=== PATIENT | male | born 1980 | race Caucasian/White ===

== ENCOUNTER 2017-03-31 15:25 | Emergency (ER) | payer BC, OTHER ==
[~2017-03-31] VITALS: Ht 170.2 cm; Wt 66.0 kg
[2017-03-31 15:31] VITALS: TEMP 36.8; Ht 170.2 cm; Wt 66.0 kg
[2017-03-31] MEDS ORDERED: ONDANSETRON INJ 2 MG/ML 2 ML VIAL IV STA (16:00)
[2017-03-31] MEDS ORDERED: KETOROLAC TROMETHAMINE 30 MG/ML VIAL IV STA (16:00)
[2017-03-31] MEDS ORDERED: SODIUM CHLORIDE 0.9% 1000ML 1,000 ML IV STA (16:00)
[2017-03-31 16:26] LABS: BASO % 0.9 %; BASO ABS # 0.05 K/uL (0-0.2); COMPLETE YES; EOS % 3.1 %; IG% 0.2 %; LYMPH % 26.8 %; LYMPH ABS # 1.54 K/uL (1.2-3.4); MEAN CELL VOLUME 87.6 fL (80-100); MEAN CORPUSCULAR HEMOGLOBIN 30.8 pg (25-34); MEAN CORPUSCULAR HGB CONC 35.1 g/dl (32-36); MEAN PLATELET VOLUME 9.6 fL (7.4-10.4); PLATELET COUNT 211 K/uL (130-400); RED BLOOD COUNT 4.91 M/uL (4.7-6.1); WHITE BLOOD COUNT 5.75 K/uL (4.8-10.8)
[2017-03-31 16:35] LABS: MANUAL MICROSCOPIC REQUIRED? NO; REVIEW REQ? NO; URINE APPEARANCE CLEAR (CLEAR); URINE BILIRUBIN NEG (NEG); URINE COLOR YELLOW; URINE EPITHELIAL CELL AUTO 0-5 /lpf (0-5); URINE NITRITE NEG (NEG); UROBILINOGEN NEG (NEG); ZZUR CULT IF INDIC CLEAN CATCH NO
[2017-03-31 16:45] LABS: BUN/CREATININE RATIO 13.9 (10-20); CALCIUM 9.2 mg/dl (8.5-10.1); CREATININE 0.9 mg/dl (0.60-1.40); POTASSIUM 3.9 mmol/L (3.5-5.1)
--- NOTE | 2017-03-31 16:48 | DIAGNOSTIC IMAGING REPORT ---
ABDOMEN AND PELVIS CT WITHOUT CONTRAST CT DOSE: 519.46 mGy.cm HISTORY: flank pain rt side TECHNIQUE: Multiaxial CT images of the abdomen and pelvis were performed without the use of intravenous and oral contrast according to the standard department stone protocol. A dose lowering technique was utilized adhering to the principles of ALARA. However, the patient was given oral contrast at an outside facility. COMPARISON STUDY: None. FINDINGS: The lung bases are clear. No pneumoperitoneum. No pneumatosis. A 6 mm hypodense lesion within the left hepatic lobe. This is too small to characterize but favors a cyst. The unenhanced spleen is unremarkable. There is a 2 mm stone within the right kidney and a 1 mm stone within the left kidney. No ureteral stones or hydronephrosis. Mild bladder wall thickening. The unenhanced gallbladder, adrenal glands, and pancreas are within normal limits. No retroperitoneal lymphadenopathy. No bowel wall thickening or obstruction. The appendix is normal in caliber measuring 6 mm. There is gas and fluid within the appendix. No periappendiceal fat stranding to suggest acute appendicitis. IMPRESSION: 1. Bilateral nephrolithiasis. No ureteral stones. No hydronephrosis. 2. No bowel wall thickening or obstruction. 3. No evidence for acute appendicitis. Electronically signed by: Catarino Rawls M.D. 03/31/2017 4:47 PM Dictated Date/Time: 03/31/2017 4:39 PM
--- NOTE | 2017-03-31 17:54 | EMERGENCY ROOM VISIT NOTE ---
History Report prepared by Zeny: Chari Nuñez Under the Supervision of: Dr. Alejandro Sabillon D.O. First contact with patient: 15:40 Chief Complaint: FLANK PAIN Stated Complaint: RIGHT SIDED PAIN History of Present Illness The patient is a 37 year old male who presents to the Emergency Room with complaints of worsening right sided abdominal pain starting last night. When the pain started last night, it was not as severe and just an annoyance. This morning when he woke up the pain had become worse. He has pain with just lightly touching his right side. He had an appointment with his PCP who had ordered a CT scan later today, but he decided to come to the ED because the pain was very severe. He denies having any rashes. He has a history of diverticulitis. He notes that his current pain is in the same area as his previous diverticulitis. Source of History: patient Onset: last night Position: abdomen (right sided) Symptom Intensity: severe Quality: other (pain) Timing: worsening Associated Symptoms: No rash Review of Systems See HPI for pertinent positives & negatives. A total of 10 systems reviewed and were otherwise negative. Past Medical & Surgical Medical Problems: (1) Diverticulitis Family History No pertinent family history stated. Social History Smoking Status: Never Smoker Marital Status: Current/Historical Medications No Active Prescriptions or Reported Meds Allergies Coded Allergies: No Known Allergies (Unverified , 03/31/17) Physical Exam Vital Signs Date Time Temp Pulse Resp B/P (MAP) Pulse Ox O2 Delivery O2 Flow Rate FiO2 03/31/17 17:17 92 18 138/82 100 Room Air 03/31/17 15:31 36.8 113 20 142/94 99 Room Air Physical Exam CONSTITUTIONAL/VITAL SIGNS: Reviewed / noted above. GENERAL: Non-toxic in appearance. INTEGUMENTARY: Warm, dry, and [place]. HEAD: Normocephalic. EYES: without scleral icterus or trauma. ENT/OROPHARYNX: clear and moist. LYMPHADENOPATHY/NECK: Is supple without lymphadenopathy or meningismus. RESPIRATORY: Lungs clear and equal. CARDIOVASCULAR: Regular rate and rhythm. GI/ABDOMEN: Soft with tenderness to palpation of the right mid abdominal region. No organomegaly or pulsatile mass. No rebound or guarding. Normal bowel sounds. EXTREMITIES: Warm and well perfused. BACK: Right CVA tenderness. NEUROLOGICAL: Intact without focal deficits. PSYCHIATRIC: normal affect. MUSCULOSKELETAL: Normally developed with good muscle tone. Medical Decision & Procedures ER Provider Diagnostic Interpretation: Radiology results as stated below per my review and radiologist interpretation: ABDOMEN AND PELVIS CT WITHOUT CONTRAST CT DOSE: 519.46 mGy.cm HISTORY: flank pain rt side TECHNIQUE: Multiaxial CT images of the abdomen and pelvis were performed without the use of intravenous and oral contrast according to the standard department stone protocol. A dose lowering technique was utilized adhering to the principles of ALARA. However, the patient was given oral contrast at an outside facility. COMPARISON STUDY: None. FINDINGS: The lung bases are clear. No pneumoperitoneum. No pneumatosis. A 6 mm hypodense lesion within the left hepatic lobe. This is too small to characterize but favors a cyst. The unenhanced spleen is unremarkable. There is a 2 mm stone within the right kidney and a 1 mm stone within the left kidney. No ureteral stones or hydronephrosis. Mild bladder wall thickening. The unenhanced gallbladder, adrenal glands, and pancreas are within normal limits. No retroperitoneal lymphadenopathy. No bowel wall thickening or obstruction. The appendix is normal in caliber measuring 6 mm. There is gas and fluid within the appendix. No periappendiceal fat stranding to suggest acute appendicitis. IMPRESSION: 1. Bilateral nephrolithiasis. No ureteral stones. No hydronephrosis. 2. No bowel wall thickening or obstruction. 3. No evidence for acute appendicitis. Electronically signed by: Catarino Rawls M.D. 03/31/2017 4:47 PM Dictated Date/Time: 03/31/2017 4:39 PM Laboratory Results 03/31/17 16:16 Red Blood Count 4.91, Mean Corpuscular Volume 87.6, Mean Corpuscular Hemoglobin 30.8, Mean Corpuscular Hemoglobin Concent 35.1, Mean Platelet Volume 9.6, Neutrophils (%) (Auto) 62.0, Lymphocytes (%) (Auto) 26.8, Monocytes (%) (Auto) 7.0, Eosinophils (%) (Auto) 3.1, Basophils (%) (Auto) 0.9, Neutrophils # (Auto) 3.57, Lymphocytes # (Auto) 1.54, Monocytes # (Auto) 0.40, Eosinophils # (Auto) 0.18, Basophils # (Auto) 0.05 03/31/17 16:16 Test 03/31/17 16:16 03/31/17 16:22 White Blood Count 5.75 K/uL (4.8-10.8) Red Blood Count 4.91 M/uL (4.7-6.1) Hemoglobin 15.1 g/dL (14.0-18.0) Hematocrit 43.0 % (42-52) Mean Corpuscular Volume 87.6 fL (80-100) Mean Corpuscular Hemoglobin 30.8 pg (25-34) Mean Corpuscular Hemoglobin Concent 35.1 g/dl (32-36) Platelet Count 211 K/uL (130-400) Mean Platelet Volume 9.6 fL (7.4-10.4) Neutrophils (%) (Auto) 62.0 % Lymphocytes (%) (Auto) 26.8 % Monocytes (%) (Auto) 7.0 % Eosinophils (%) (Auto) 3.1 % Basophils (%) (Auto) 0.9 % Neutrophils # (Auto) 3.57 K/uL (1.4-6.5) Lymphocytes # (Auto) 1.54 K/uL (1.2-3.4) Monocytes # (Auto) 0.40 K/uL (0.11-0.59) Eosinophils # (Auto) 0.18 K/uL (0-0.5) Basophils # (Auto) 0.05 K/uL (0-0.2) RDW Standard Deviation 41.4 fL (36.4-46.3) RDW Coefficient of Variation 12.9 % (11.5-14.5) Immature Granulocyte % (Auto) 0.2 % Immature Granulocyte # (Auto) 0.01 K/uL (0.00-0.02) Anion Gap 5.0 mmol/L (3-11) Est Creatinine Clear Calc Drug Dose 106.9 ml/min Estimated GFR () 127.8 Estimated GFR (Non- 110.3 BUN/Creatinine Ratio 13.9 (10-20) Calcium Level 9.2 mg/dl (8.5-10.1) Total Bilirubin 0.7 mg/dl (0.2-1) Direct Bilirubin 0.2 mg/dl (0-0.2) Aspartate Amino Transf (AST/SGOT) 17 U/L (15-37) Alanine Aminotransferase (ALT/SGPT) 25 U/L (12-78) Alkaline Phosphatase 97 U/L (45-117) Total Protein 7.8 gm/dl (6.4-8.2) Albumin 4.2 gm/dl (3.4-5.0) Lipase 628 U/L (73-393) Urine Color YELLOW Urine Appearance CLEAR (CLEAR) Urine pH 6.0 (4.5-7.5) Urine Specific [place] 1.010 (1.000-1.030) Urine Protein NEG (NEG) Urine Glucose (UA) NEG (NEG) Urine Ketones NEG (NEG) Urine Occult Blood NEG (NEG) Urine Nitrite NEG (NEG) Urine Bilirubin NEG (NEG) Urine Urobilinogen NEG (NEG) Urine Leukocyte Esterase NEG (NEG) Urine WBC (Auto) 0 /hpf (0-5) Urine RBC (Auto) 0-4 /hpf (0-4) Urine Hyaline Casts (Auto) 0 /lpf (0-5) Urine Epithelial Cells (Auto) 0-5 /lpf (0-5) Urine Bacteria (Auto) NEG (NEG) Laboratory results as stated above per my review. Medications Administered Medications (Trade) Dose Ordered Sig/Frances Route Start Time Stop Time Status Last Admin Dose Admin Sodium Chloride 1,000 ml @ 999 mls/hr Q1H1M STAT IV 03/31/17 16:00 03/31/17 17:00 DC 03/31/17 16:23 999 MLS/HR Ondansetron HCl (Zofran Inj) 4 mg NOW STAT IV 03/31/17 16:00 03/31/17 16:01 DC 03/31/17 16:23 4 MG Ketorolac Tromethamine (Toradol Inj) 30 mg NOW STAT IV 03/31/17 16:00 03/31/17 16:01 DC 03/31/17 16:24 30 MG ED Course 1556: Previous medical records were reviewed. The patient was evaluated in room A4B. A complete history and physical examination was performed. 1600: Toradol Inj 30 mg IV, Zofran Inj 4 mg IV, NSS 1000 ml @ 999 mls/hr IV. 1738: On reevaluation, the patient is resting comfortably. I discussed the results and findings with the patient. He verbalized agreement of the treatment plan. He was discharged home. Medical Decision Differential considered: pancreatitis, hepatitis, or acute cholecystitis, AAA, UTI, pyelonephritis, kidney stones, appendicitis, diverticulitis, shingles, bowel obstruction mesenteric ischemia, intussusception,hernia, testicular torsion. This is a 37-year-old male who presents to the ED with a chief complaint of abdominal pain. The patient reports right sided mid to lateral abdominal pain. The symptoms started yesterday morning. He states that he went to his PCP and was going to have a CT scan later today and [place] but decided to come here for evaluation as his pain persisted. The patient denied any associated vomiting. No fevers. He states that he has had diverticulitis in the past 6 years ago. The patient denies any other significant symptoms. No chest pains or shortness of breath. His vital signs are stable. His physical exam was unremarkable with exception of some right CVA tenderness and some right sided abdominal tenderness. The patient actually has tenderness with light palpation to the skin. She is. A CT scan of the abdomen pelvis did not show acute process. CBC and complete metabolic panel were normal. Lipase is slightly elevated. This is of uncertain significance. Urine did not show infection. The patient was told the results. He was treated with IV fluids and IV Toradol. He was given IV Zofran. The patient was felt to be stable for discharge. He'll return for worsening or if he develops a rash and otherwise anticipate improvement over time. Medication Reconcilliation Current Medication List: was personally reviewed by me Blood Pressure Screening Patient's blood pressure: Elevated blood pressure Blood pressure disposition: Elevated BP felt to be situational Impression Primary Impression: Right sided abdominal pain Scribe Attestation The scribe's documentation has been prepared under my direction and personally reviewed by me in its entirety. I confirm that the note above accurately reflects all work, treatment, procedures, and medical decision making performed by me. Departure Information Dispostion Home / Self-Care Prescriptions No Active Prescriptions or Reported Meds Referrals No Doctor, Assigned (PCP) Patient Instructions My [facility]
[2017-03-31 18:04] VITALS: BP 136/92; PULSE 83; O2SAT 100
== END 2017-03-31 18:05 | disposition home or self-care (01) ==
LOC: C.EDB 15:27 → C.EDA 18:05
DX: R10.30 Lower abdominal pain, unspecified (principal); K57.92 Diverticulitis of intestine, part unspecified, without perforation or abscess without bleeding